=== PATIENT | female | born 1940 | race Caucasian/White ===

== ENCOUNTER 2017-07-29 09:34 | Inpatient (IN) | payer OTHER ==
[2017-07-29] VITALS (10 sets, daily range): BP systolic 55–185; BP diastolic 20–96
[~2017-07-29] VITALS: Ht 165.1 cm; Wt 72.6 kg
--- NOTE | ~2017-07-29 | HC ---
[facility] [place] [address] CONSULTATION Name: SADIQ CHEN Room #: 243-P [facility] IN M.R.#: [id number] Admission: 07/29/17 Attend Phys: Gilles Díaz MD Discharge: Date of : 44 Report #: [id number] THIS REPORT FOR: //name// CC: Jez Díaz REFERRING PHYSICIAN: Dr. Díaz. REASON FOR REFERRAL: Acute respiratory failure. HISTORY OF PRESENT ILLNESS: The patient is a 77-year-old white female who was brought to the emergency room with altered mental status. She was found to be hypoxic, hypotensive. Chest x-ray shows total whiteout of the right lung field. A pulmonary consultation was requested. The patient's is present. He was able to provide history and medical information. The patient was diagnosed with Alzheimer's about 2015. This was following a fall. Ever since then, he notes that her health has had progressive decline. She has been a resident at a fdc at [facility] for the past several months. Her mental status has shown progressive decline where she was less awake. She has not walked for about a year. Over the past few days, she has been less responsive. For this reason, she was brought to the emergency room. In the ER, the patient was found to be hypotensive with a systolic blood pressure 75 mmHg. She was hypoxic. She was placed on nonrebreather. Chest x-ray as mentioned above showing total whiteout of the right lung field. The patient was transferred to the ICU. In the ER, the patient's vital signs prior to transfer, her blood pressure was 78/50 mmHg, on 15 liters of O2, pulse is 62, respiratory is 38, saturation reading 96%. Arterial blood gas performed earlier revealed pH 7.44, pCO2 of 30, pO2 of 47 on 5 liters of O2. Creatinine was 2.3, bicarb was 22. WBC 22,700, hemoglobin 8.2. When I arrived in ICU, the patient remains very somnolent, though responsive to physical stimuli, she is dyspneic, saturation currently reading about 86% on nonrebreather mask, respiratory rate is in the 30s, blood pressure adequate with a systolic 100 mmHg. PAST MEDICAL HISTORY: As mentioned above. Otherwise, incomplete. PAST SURGICAL HISTORY: Unknown. ALLERGIES: None noted. According to the . MEDICATIONS: List from the fdc include Norvasc, aspirin, Lasix, levothyroxine, Zestril, Protonix, Coreg, [place] [address] CONSULTATION Name: SADIQ CHEN Room #: [facility] IN M.R.#: [id number] Admission: 07/29/17 Attend Phys: Gilles Díaz MD Discharge: Date of : 44 Report #: [id number] FAMILY HISTORY: Notable for myocardial infarction in both parents who both . SOCIAL HISTORY: Born and raised in [place], [place]. She is . There is no history of tobacco or alcohol use. The patient was a marketing operations assistant. REVIEW OF SYSTEMS: As mentioned above. It is also notable for progressive confusion, dementia, weakness over the past year. Otherwise, the patient is very somnolent. PHYSICAL EXAMINATION: NEUROLOGIC: Again, she is arousable with the physical stimuli, but appears quite somnolent. VITAL SIGNS: Temperature is 97.6 degrees Fahrenheit, pulse is 74, respiratory rate is 40, blood pressure is 86/54 mmHg, it was as low as 78 mmHg; saturation 88%. HEENT: Normocephalic, atraumatic. NECK: Supple, without any lymphadenopathy or thyromegaly. CHEST: Breath sounds are absent in the right lung field, fair breath sounds on the left. CARDIOVASCULAR: Distant heart sounds. No obvious murmurs or gallop. Pulses reduced to 1/4+ bilaterally. BREASTS: Deferred. ABDOMEN: Soft, no masses felt. GENITOURINARY: Deferred. RECTAL: Deferred. EXTREMITIES: No cyanosis, clubbing, or edema. LABORATORY DATA: Portable chest x-ray and chest CT as mentioned above showing complete opacification of the right lung field, right lower lobe atelectasis. CT head shows chronic atrophic changes, otherwise no acute findings noted. Electrolytes: Sodium 140, potassium 4.0, chloride 107, CO2 of 22, BUN is 63, creatinine is 2.3. WBC 22,700, hemoglobin 8.2, platelets are normal. Arterial blood gas as mentioned above. IMPRESSION: 1. Acute hypoxic respiratory failure in a 77-year-old white female with progressive dementia. Pneumonia is likely. Aspiration is suspected. 2. Renal insufficiency. Indices suggest prerenal azotemia, volume depletion with hypotension, suspect component of acute tubular necrosis. 3. Severe sepsis with hypotension. 4. Anemia. Indices shows normochromic, normocytic. 5. Progressive dementia. 6. Progressive generalized debility and weakness. 7. Incomplete history, but based on the medication list, it appears the patient [facility] [address] [address] CONSULTATION Name: SADIQ CHEN Room #: 243-P [facility] IN M.R.#: [id number] Admission: 07/29/17 Attend Phys: Gilles Díaz MD Discharge: Date of : 44 Report #: [id number] has a history of hypertension, chronic heart failure, reflux disease. MEDICAL DIRECTIVE: DNR. The patient's confirms that she does not want life support. RECOMMENDATION AND DISCUSSION: I had a long discussion with the patient's regarding her current condition along with pneumonia, etc. At this time, he does not wish life support measures. He desires comfort measures. Recommend morphine for comfort. Once family arrives, can discontinue all other medications except for morphine. The patient's understands that her condition is very critical and demise is imminent. Thank you for this consultation. <ELECTRONICALLY SIGNED> By: Suresh Tiwari MD 07/29/17 1615 [id number] Suresh Tiwari MD /nt
--- NOTE | ~2017-07-29 | EKG ---
[address] [employer] [place] [address] ELECTROCARDIOGRAM REPORT Name: SADIQ CHEN Room #: 405-P [facility] IN M.R.#: [id number] Admission: 07/29/17 Attend Phys: Gilles Díaz MD Discharge: Date of : 44 Report #: [id number] THIS REPORT FOR: //name// [facility] ED Test Date: 2017-07-29 Test Time: 10:01:02 Pat Name: SADIQ CHEN Department: Room: Gender: F Hha: Tommy FISHER : 1940 Requested By: Pedro Briceño Order Number: [id number] MD: Zack Frank Measurements Intervals [place] Rate: 79 P: 67 DE: 168 QRS: -16 QRSD: 96 T: 209 QT: 364 QTc: 418 Interpretive Statements Sinus rhythm Borderline left axis deviation Low voltage, precordial leads Possible lateral ischemia No previous ECG available for comparison Electronically Signed On 07-29-2017 21:36:48 CDT by Zack Frank [email or web address] <ELECTRONICALLY SIGNED> By: Zack Frank MD 07/29/17 2136 00 00 Zack Frank MD /MEREDITH
[2017-07-29 10:20] LABS: BE(vivo) -2.7 mmol/L (-2 to +3); HCO3 20.8 mmol/L (22.0-26.0); PCO2 30.9 mmHg (35.0-45.0); PO2 47.6 mmHg (80.0-100.0); pH 7.445 (7.360-7.450); sO2 85.8 % (92.0-98.0)
[2017-07-29] MEDS ORDERED: NORVASC5 MG PO (10:41)
[2017-07-29] MEDS ORDERED: LASIX 20 MG TAB20 MG PO (10:42)
[2017-07-29] MEDS ORDERED: ASPIR 8181 MG PO (10:42)
[2017-07-29] MEDS ORDERED: LISINOPRIL20 MG PO (10:44)
[2017-07-29] MEDS ORDERED: LEVO-T100 MCG PO (10:44)
[2017-07-29 10:45] LABS: ANION GAP 11 mmol/L (7-16); BUN 63 mg/dL (7-18); CALCIUM 9.9 mg/dL (8.5-10.1); CHLORIDE 107 mmol/L (98-107); CO2 22 mmol/L (21-32); CREATININE 2.3 mg/dL (0.6-1.0); GLUCOSE 146 mg/dL (74-106); SODIUM 140 mmol/L (136-145)
[2017-07-29] MEDS ORDERED: PROTONIX40 M1 PO (10:45)
[2017-07-29] MEDS ORDERED: ARICEPT 5 MG TAB5 MG PO (10:46)
[2017-07-29] MEDS ORDERED: CARVEDILOL3.125 MG PO (10:46)
[2017-07-29 10:50] LABS: HEMATOCRIT 24.4 % (37.0-47.0); HEMOGLOBIN 8.2 gm/dL (12.0-15.0); MCH 31.5 pg (26.0-34.0); MCHC 33.6 g/dL (28.0-37.0); PLATELET COUNT 212 thou/uL (150-400); RDW 18.1 % (10.5-14.5); WBC 22.7 thou/uL (4.0-11.0)
[2017-07-29 10:53] LABS: TROPONIN-I < 0.04 ng/mL (<0.06)
[2017-07-29 11:12] LABS: URINE BILIRUBIN NEGATIVE (Negative); URINE BLOOD 1+ (Negative); URINE CLARITY CLEAR; URINE COLOR YELLOW; URINE GLUCOSE-RANDOM* NEGATIVE (Negative); URINE KETONES NEGATIVE (Negative); URINE NITRITE-REFLEX NEGATIVE (Negative); URINE PROTEIN (DIPSTICK) NEGATIVE (Negative); URINE SPECIFIC GRAVITY <= 1.005 (1.005-1.035); URINE UROBILINOGEN 0.2 E.U./dl (0.2-1.0)
[2017-07-29 11:13] LABS: URINE LEUKOCYTES-REFLEX 2+ (Negative)
[2017-07-29 11:19] LABS: ABSOLUTE NEUTROPHILS 18.8 thou/uL (1.4-8.2); ANISOCYTOSIS 2+; METAMYELOCYTES 3 %
[2017-07-29 11:39] LABS: SQUAMOUS 4-10 Moderate /LPF (0-3)
[2017-07-29 11:40] LABS: BACTERIA-REFLEX 1-9 Few /HPF (None Seen); CASTS None Seen /LPF (None Seen); CRYSTALS None Seen /LPF (None Seen); URINE RBC 0-2 Rare /HPF (0-2)
[2017-07-29 11:41] LABS: URINE WBC-REFLEX 6-15 Few /HPF (0-5)
[2017-07-30 07:10] VITALS: BP 62/39
== END 2017-07-30 16:06 | DRG 871 ==
LOC: ER 09:34 → EROBS 11:35 → ICU 12:51 → 4N 17:53
PROVIDERS: Emergency Medicine
DX: A41.9 Sepsis, unspecified organism (principal); J18.9 Pneumonia, unspecified organism; J96.01 Acute respiratory failure with hypoxia; R65.21 Severe sepsis with septic shock; G30.9 Alzheimer's disease, unspecified; F02.80 Dementia in other diseases classified elsewhere, unspecified severity, without behavioral disturbance, psychotic disturbance, mood disturbance, and anxiety; D64.9 Anemia, unspecified; E86.9 Volume depletion, unspecified; E03.9 Hypothyroidism, unspecified; E11.9 Type 2 diabetes mellitus without complications; F32.9 Major depressive disorder, single episode, unspecified; Z82.49 Family history of ischemic heart disease and other diseases of the circulatory system; Z79.82 Long term (current) use of aspirin; Z79.899 Other long term (current) drug therapy; Z66 Do not resuscitate; Z51.5 Encounter for palliative care
CPT/HCPCS: 10790